=== PATIENT | male | born 1990 | race Caucasian/White ===

== ENCOUNTER 2016-10-10 19:11 | Inpatient (IN) | payer SELFPAY ==
[2016-10-10] MEDS ORDERED: SODIUM CHLORIDE 0.9% 1000ML 1,000 ML IVS ONE (20:34)
--- NOTE | 2016-10-10 21:19 | CT ---
EXAM DESCRIPTION: Abdomen/Pelvis w/Contrast CLINICAL HISTORY: 26 years Male mid abd to lower Right quad pain COMPARISON: None. TECHNIQUE: Contiguous axial images obtained through the abdomen and pelvis following IV contrast. Reformatted images obtained. This exam was performed according to our department optimization program which includes automated exposure control, adjustment of the mA and/or kv according to patient size and/or use of iterative reconstruction technique. FINDINGS: Liver is enlarged measuring 20 cm. No focal lesions are noted. The spleen and pancreas appear unremarkable. No adrenal masses. The kidneys appear unremarkable. No hydronephrosis. The gallbladder is visualized. No aneurysmal dilatation of the aorta. No bowel obstruction. The appendix is dilated and inflamed with hyperemia in the wall. The appendix measures 11 mm. There is some adjacent inflammation. No evidence to suggest perforation.. No significant free fluid noted. IMPRESSION: Findings consistent with acute appendicitis. Dr. Ridley was called and notified of the findings at 9:17 PM central time. Mildly enlarged liver Electronically signed by: Terrie Olivo 10/10/2016 9:17 PM CDT
--- NOTE | 2016-10-10 21:48 | ED.PDOC ---
History of Present Illness - General Chief Complaint: Abdominal Pain Stated Complaint: mid lower abd pain Time Seen by Provider: 10/10/16 21:33 Information Source: patient Exam Limitations: no limitations - History of Present Illness Initial Comments: Norberto Young 26 y/o male stated that he started sharp abdominal pain at 4am today which had been constant not getting better. No nausea,vomiting , diarrhea.Stated did not eat no appetite Pain Radiation: RLQ Quality: sharpness Timing/Duration: 7-24 hours Improving Factors: nothing Worsening Factors: nothing Associated Symptoms: denies symptoms Review of Systems - Review of Systems Constitutional: States: no symptoms reported EENTM: States: no symptoms reported Respiratory: States: no symptoms reported Cardiology: States: no symptoms reported Gastrointestinal/Abdominal: States: see HPI Genitourinary: States: no symptoms reported Musculoskeletal: States: no symptoms reported Skin: States: no symptoms reported Past Medical History (General) - Patient Medical History Hx Asthma: No Hx Hypertension: No Hx Diabetes: No Surgical History: no surgical history - Vaccination History Hx Tetanus, Diphtheria Vaccination: No Hx Influenza Vaccination: No - Social History Hx Tobacco Use: No Hx Chewing Tobacco Use: No Hx Alcohol Use: No Hx Substance Use: No Hx Substance Use Treatment: No Hx Depression: No Feels Threatened In Home Enviroment: No Feels Threatened In a Relationship: No Hx Physical Abuse: No Hx Emotional Abuse: No Hx Suspected Abuse: No - Activities of Daily Living Hospice Agency (if applicable):: None - Female History Patient is a Female of Child Bearing Age (10 -59 yrs old): No Family Medical History - Family History Father Hx Family Hypertension: Yes Physical Exam - Physical Exam General Appearance: Alert, Comfortable, No apparent distress Eyes, Ears, Nose, Throat Exam: PERRL/EOMI, TMs normal, pharynx normal Neck: non-tender, supple Respiratory: chest non-tender, lungs clear, normal breath sounds Cardiovascular/Chest: normal peripheral pulses, regular rate, rhythm, no murmur Peripheral Pulses: No deficit Gastrointestinal/Abdominal: normal bowel sounds, no organomegaly, rebound, tenderness - RLQ Back Exam: no CVA tenderness Extremity: non-tender, no pedal edema, no calf tenderness Neurologic: no motor/sensory deficits, alert, oriented x 3 Skin Exam: normal color Lymphatic: no adenopathy Progress - Results/Orders Results/Orders: Vital Signs - 8 hr 07/27/17 07/27/17 19:29 20:31 Temperature 99.1 F Pulse Rate [ 83 61 left] Respiratory 18 18 Rate Blood Pressure 122/86 127/79 [left] O2 Sat by Pulse 98 98 Oximetry 10/10/16 20:34 Hold Metformin x 48Hrs [id number] Laboratory Results WBC 10.9 K/mm3 (4.8-10.8) H 10/10/16 19:35 RBC 5.35 M/mm3 (4.70-6.10) 10/10/16 19:35 Hgb 16.2 gm/dL (14.0-18.0) 10/10/16 19:35 Hct 47.2 % (42.0-52.0) 10/10/16 19:35 MCV 88.2 fl (80.0-94.0) 10/10/16 19:35 MCH 30.3 pg (27.0-31.0) 10/10/16 19:35 MCHC 34.4 g/dL (33.0-37.0) 10/10/16 19:35 RDW 14.0 % (11.5-14.5) 10/10/16 19:35 Plt Count 211 K/mm3 (130-400) 10/10/16 19:35 MPV 9.3 fl (7.40-10.4) 10/10/16 19:35 Absolute Neuts (auto) 7.30 K/uL (1.8-6.8) H 10/10/16 19:35 Absolute Lymphs (auto) 2.60 K/uL (1.0-3.4) 10/10/16 19:35 Absolute Monos (auto) 0.80 K/uL (0.2-0.8) 10/10/16 19:35 Absolute Eos (auto) 0.20 K/uL (0.0-0.4) 10/10/16 19:35 Absolute Basos (auto) 0.00 K/uL (0.0-0.1) 10/10/16 19:35 Neutrophils % 66.6 % (42.0-78.0) 10/10/16 19:35 Lymphocytes % 23.7 % (20.0-50.0) 10/10/16 19:35 Monocytes % 7.3 % (2.0-9.0) 10/10/16 19:35 Eosinophils % 2.0 % (1.0-5.0) 10/10/16 19:35 Basophils % 0.4 % (0.0-2.0) 10/10/16 19:35 Sodium 140 mmol/L (135-145) 10/10/16 19:35 Potassium 3.7 mmol/L (3.6-5.0) 10/10/16 19:35 Chloride 103 mmol/L (101-111) 10/10/16 19:35 Carbon Dioxide 27 mmol/L (21-31) 10/10/16 19:35 Anion Gap 13.7 (12-18) 10/10/16 19:35 BUN 17 mg/dL (7-18) 10/10/16 19:35 Creatinine 1.02 mg/dL (0.6-1.3) 10/10/16 19:35 BUN/Creatinine Ratio 16.7 (10-20) 10/10/16 19:35 Random Glucose 100 mg/dL (70-105) 10/10/16 19:35 Serum Osmolality 281.0 mOsm/L (275-295) 10/10/16 19:35 Calcium 9.6 mg/dL (8.4-10.2) 10/10/16 19:35 Total Bilirubin 1.1 mg/dL (0.2-1.0) H 10/10/16 19:35 AST 20 IU/L (10-42) 10/10/16 19:35 ALT 20 IU/L (10-60) 10/10/16 19:35 Alkaline Phosphatase 93 IU/L (42-121) 10/10/16 19:35 Serum Total Protein 8.2 gm/dL (6.4-8.2) 10/10/16 19:35 Albumin 5.2 g/dl (3.2-5.5) 10/10/16 19:35 Globulin 3.0 gm/dL (2.3-3.5) 10/10/16 19:35 Albumin/Globulin Ratio 1.7 (1.1-1.9) 10/10/16 19:35 Urine Color Yellow (Yellow) 10/10/16 19:35 Urine Appearance Clear (Clear) 10/10/16 19:35 Urine pH 5.5 (4.5-7.8) 10/10/16 19:35 Ur Specific [place] >= 1.030 (1.005-1.030) 10/10/16 19:35 Urine Protein 100 mg/dL H 10/10/16 19:35 Urine Glucose (UA) Negative mg/dL (Negative) 10/10/16 19:35 Urine Ketones Negative mg/dL (NEGATIVE) 10/10/16 19:35 Urine Blood Negative (Negative) 10/10/16 19:35 Urine Nitrite Negative 10/10/16 19:35 Urine Bilirubin Small (NEGATIVE) H 10/10/16 19:35 Urine Urobilinogen 0.2 mg/dL (0.2-1.0) 10/10/16 19:35 Ur Leukocyte Esterase Negative (Negative) 10/10/16 19:35 Urine RBC 0 /hpf 10/10/16 19:35 Urine WBC 0-1 /hpf 10/10/16 19:35 Ur Epithelial Cells 0-1 /hpf 10/10/16 19:35 Amorphous Sediment 1+ 10/10/16 19:35 Urine Bacteria 0 10/10/16 19:35 Urine Mucus Large 10/10/16 19:35 - EKG/XRAY/CT CT Ordered: Yes - acute appendicitis -no perforation Departure - Departure Clinical Impression: Acute appendicitis Qualifiers: Acute appendicitis type: with localized peritonitis Qualified Code(s): K35.3 - Acute appendicitis with localized peritonitis Time of Disposition: 21:53 - D/W Dr. Resendiz -surgeon Disposition: Admit Patient Condition: Good Departure Forms: Patient Portal Self Enrollment Decision To Admit - Decistion To Admit Decision to Admit Reason: Admit from ER Decision to Admit Date: 10/10/16 Decision to Admit Time: 21:57 - D/W Dr. Resendiz will admit patient
[2016-10-10] MEDS ORDERED: ONDANSETRON INJ 4 MG/2 ML VIAL IV ONE (22:14)
[2016-10-10] MEDS: LACTATED RINGERS 1,000 ML IVS PRN (22:35)
[2016-10-10] MEDS ORDERED: LACTATED RINGERS 1,000 ML ONE (22:38)
[2016-10-10] MEDS ORDERED: metroNIDAZOLE IV PREMIX 500MG 100 ML IVPB ONE (22:38)
[2016-10-10] MEDS: metroNIDAZOLE IV PREMIX 500MG 500 MG in PREMIX BAG 1 BAG IVPB SCH (22:40)
[2016-10-10] MEDS: MORPHINE SULFATE INJ 10 MG/ML VIAL IV PRN (22:41)
--- NOTE | 2016-10-10 23:05 | HP ---
CHIEF COMPLAINT: Abdominal pain. HISTORY OF PRESENT ILLNESS: The patient is a healthy, 26-year-old male who was in his normal state of health until early yesterday morning when he developed abdominal pain. It moved to the right side and worsened. He presented to the Emergency Room. He denies high fever or chills. He denies, cough, urinary symptoms, denies nausea or vomiting. His last bowel movement was day before yesterday and was within normal limits. PAST MEDICAL HISTORY: Negative for hospitalizations or surgeries. CURRENT MEDICATIONS: None. ALLERGIES: NO KNOWN DRUG ALLERGIES. FAMILY HISTORY: Positive for high blood pressure. There is also an unknown malignancy in a cousin. There is no history of anesthesia complications. There is no stated history of diabetes in the family. SOCIAL HISTORY: The patient is . He works in the construction industry. He has no history of tobacco, alcohol or drug use. REVIEW OF SYSTEMS: There has been no weight loss, change in bowel habits, shortness of breath, chest pain, urinary symptoms, dizziness, no history of melena, blood stools, or hematemesis. PHYSICAL EXAMINATION: GENERAL: The patient is awake, alert, cooperative, in mild to moderate distress. VITAL SIGNS: The patient is currently afebrile, normotensive. HEENT: Sclerae nonicteric. Mucous membranes moist. NECK: Without adenopathy. BACK: Without CVA tenderness. CHEST: Equal breath sounds bilaterally anteriorly. HEART: Regular rate and rhythm. ABDOMEN: Soft. Tender in the right lower quadrant with mild guarding. There is no referred tenderness. Bowel sounds are decreased. RECTAL: Deferred. EXTREMITIES: Without cyanosis, clubbing or edema. LABORATORY: White count 8,000 this morning with 56% neutrophils. Hemoglobin 14.6. This was down from 16 in the Emergency Room. White count down from 10.9 in the Emergency Room. Electrolytes in the Emergency Room were all within normal limits with potassium 3.7, creatinine 1.02, bilirubin mildly elevated at 1.1. ALT, AST, alkaline phosphatase all within normal limits. CT scan of the abdomen reveals an appendix 11 mg in diameter with inflammation, no evidence of free fluid or free air. ASSESSMENT: 1. Right lower quadrant abdominal pain. 2. Abnormal CT scan suspicious for appendicitis. PLAN: The risks, benefits and alternatives to laparoscopy and appendectomy were discussed with the patient. He understands and wishes to proceed with surgery. He was previously started on Levaquin and Flagyl. This will be dosed appropriately if it is time for these medicines. #[id number] MTDD
[2016-10-11] MEDS ORDERED: levoFLOXacin 500MG IV 100 ML IVPB ONE ×2 (00:09→20:26)
[2016-10-11] MEDS: levoFLOXacin 500MG IV 500 MG in PREMIX BAG 1 BAG IVPB SCH (00:16)
[2016-10-11] MEDS: MORPHINE SULFATE INJ 10 MG/ML VIAL IV PRN ×5 (02:58→18:50)
[2016-10-11] MEDS ORDERED: metroNIDAZOLE IV PREMIX 500MG 100 ML IVPB ONE ×3 (06:33→20:26)
[2016-10-11] MEDS: metroNIDAZOLE IV PREMIX 500MG 500 MG in PREMIX BAG 1 BAG IVPB SCH ×3 (06:38→21:48)
[2016-10-11] MEDS: LACTATED RINGERS 1,000 ML IVS PRN ×3 (07:26→18:56)
[2016-10-11] MEDS ORDERED: levoFLOXacin 500MG IV 500 MG in PREMIX BAG 1 BAG IVPB SCH (09:00)
[2016-10-11] MEDS ORDERED: SODIUM CHLORIDE 0.9% (FLUSH) 10 ML SYG IV PRN (09:23)
[2016-10-11] MEDS ORDERED: IV SET AND CAP CHANGE INJ INJ SCH (09:30)
[2016-10-11] MEDS ORDERED: BUPIVACAINE 0.25% W/EPI 50 ML VIAL INJ ONE (10:05)
[2016-10-11] MEDS ORDERED: LIDOCAINE 1% 10 ML VIAL INJ ONE (12:00)
[2016-10-11] MEDS ORDERED: PROPOFOL 200 MG/20 ML VIAL IV ONE (12:00)
[2016-10-11] MEDS ORDERED: DEXAMETHASONE INJ 10 MG/ML VIAL IV ONE (12:00)
[2016-10-11] MEDS ORDERED: METOCLOPRAMIDE HCL INJ 10 MG/2 ML VIAL IV ONE (12:00)
[2016-10-11] MEDS ORDERED: KETOROLAC TROMETHAMINE INJ 30 MG/ML VIAL IV ONE (12:00)
[2016-10-11] MEDS ORDERED: raNITIdine HCL INJ 25 MG/ML VIAL IV ONE (12:00)
[2016-10-11] MEDS ORDERED: CHLORHEXIDINE GLUCONATE 4 % 15 ML UD TOP ONE (12:33)
[2016-10-11] MEDS ORDERED: fentaNYL CITRATE INJ 50 MCG/ML AMP ONE (12:41)
[2016-10-11] MEDS ORDERED: MIDAZOLAM INJ 5 MG/5 ML VIAL ONE (12:41)
[2016-10-11] MEDS ORDERED: ROCURONIUM BROMIDE 10 MG/ML VIAL ONE (12:41)
[2016-10-11] MEDS ORDERED: ELECTROLYTE-A 1,000 ML IVS ONE (13:21)
[2016-10-11] MEDS ORDERED: SUGAMMADEX SODIUM 200 MG/2 ML VIAL IV ONE (14:02)
[2016-10-11] MEDS ORDERED: ONDANSETRON INJ 4 MG/2 ML VIAL IV PRN (14:18)
--- NOTE | 2016-10-11 14:49 | OP ---
DATE OF PROCEDURE: 10/11/16 PREOPERATIVE DIAGNOSIS: 1. Right lower quadrant abdominal pain. 2. Abnormal CT scan suspicious for appendicitis. POSTOPERATIVE DIAGNOSIS: 1. Right lower quadrant abdominal pain. 2. Abnormal CT scan suspicious for appendicitis. 3. Acute suppurative appendicitis. PROCEDURE: 1. Laparoscopic appendectomy. SURGEON: Vadim Resendiz MD. MEDIA BUYER: None. ANESTHESIA: General endotracheal anesthesia and local infiltration of 0.25% Marcaine with epinephrine. INDICATION: The patient is a 26-year-old white male who developed abdominal pain yesterday. He had a mildly elevated white count in the Emergency Room. He was started on IV Levaquin and Flagyl this morning. His white count was 8, 000. He continued to have right lower quadrant pain, however, and some guarding , so after the risks, benefits and alternatives to surgery including antibiotic therapy only, we have decided to proceed with appendectomy and that is done laparoscopically today. FINDINGS: The appendix was indurated, suppurative and injected. There was no obvious fluid collection. No other pathology was identified. PROCEDURE: After adequate general endotracheal anesthesia was obtained, the patient was prepped and draped in the usual sterile manner. A Turner catheter was placed. At this time, a surgical time-out was taken. The infraumbilical area was infiltrated with local anesthesia. A curvilinear incision was fashioned and carried down through the subcutaneous tissue to the midline fascia using blunt dissection. Traction sutures were placed on either side of the midline. A small incision was made in the midline fascia. The peritoneum was opened bluntly. Augustus trocar was introduced under direct vision into the abdominal cavity and fixed in place with a 20 mL balloon. CO2 was then insufflated until a pressure of 12 mmHg was reached and the abdomen was tympanitic in all four quadrants. When this was done, the laparoscope was introduced and the abdomen was inspected with the previously noted findings. The patient was then placed in the Trendelenburg position. A suprapubic port was placed under direct vision. The right lower quadrant was explored and the appendix was identified. The left lower quadrant port was placed under direct vision. The patient was then turned to the left side. The appendix was dissected free with gentle blunt dissection and it was elevated. The base of the appendix was identified. The mesoappendix at the base was divided using blunt dissection. The Endo-IGNACIO was then used to divide the base of the appendix with vascular dacia. Two more firings divided the mesoappendix. It was then placed in an EndoCatch bag and removed through the left lower quadrant port site in the usual manner under direct vision. When this was done, the right lower quadrant was inspected. Several loose dacia were removed. A small amount of blood and clot were removed using a single sponge. The sponge was removed. Hemostasis was noted to be adequate. At this point, the left lower quadrant port was removed under direct vision and the port site fascia was approximated with two simple sutures of 0 Vicryl placed using the EndoClose device. When these were tightened and tied, hemostasis was noted to be adequate. At this point, the suprapubic port was removed under direct vision and showed adequate hemostasis. At this point, the CO2, the laparoscope and the infraumbilical port were removed. The infraumbilical port site fascia was approximated with a single [id number] suture of 0 Vicryl. Subcutaneous tissue was irrigated with saline. Skin edges were approximated with loosely with a skin stapler. Sterile dressings were applied. Turner catheter was removed. The patient was awakened and taken to the Recovery Room in stable condition. Estimated blood loss was less than 25 mL. All sponge, needle and instrument counts were correct. #[id number] [facility]
[2016-10-11] MEDS: HYDROcodone 5MG/APAP 325MG 1 EA TAB PO PRN (23:15)
[2016-10-12] MEDS: levoFLOXacin 500MG IV 500 MG in PREMIX BAG 1 BAG IVPB SCH (00:11)
[2016-10-12] MEDS: HYDROcodone 5MG/APAP 325MG 1 EA TAB PO PRN ×4 (02:59→11:58)
[2016-10-12] MEDS: LACTATED RINGERS 1,000 ML IVS PRN (04:50)
[2016-10-12] MEDS ORDERED: metroNIDAZOLE IV PREMIX 500MG 100 ML IVPB ONE (05:12)
[2016-10-12] MEDS: metroNIDAZOLE IV PREMIX 500MG 500 MG in PREMIX BAG 1 BAG IVPB SCH (05:32)
[2016-10-12 10:22] VITALS: BP 115/73; TEMP 97.6
[2016-10-12 10:23] VITALS: O2SAT 98
[2016-10-12] MEDS ORDERED: MAGNESIUM HYDROXIDE 30 ML UD PO ONE (11:34)
--- NOTE | 2016-10-21 08:34 | DS ---
FINAL DIAGNOSIS: 1. Acute appendicitis. PROCEDURE: Laparoscopic appendectomy on 10/11/16. HISTORY OF PRESENT ILLNESS: The patient is a healthy, 26-year-old male who was in his normal state of health until early yesterday morning when he developed abdominal pain. It moved to the right side and worsened. He presented to the Emergency Room. He denies high fever or chills. He denies, cough, urinary symptoms, denies nausea or vomiting. His last bowel movement was day before yesterday and was within normal limits. LABORATORY: White blood cell count 8,000 preoperatively with a hemoglobin of 14. This was down from 16 in the Emergency Room. Liver functions were within normal limits other than bilirubin of 1.1. Creatinine 1.02. CT scan revealed an abnormal appendix associated with appendicitis. HOSPITAL COURSE: The patient was admitted through the Emergency Room late at night on 10/10/16. He was hydrated and started on IV antibiotics. By the next morning, his pain had not improved even though his lab had, so the risks, benefits and alternatives to laparoscopy and appendectomy were discussed with the patient and he was taken to the Surgical Suite where he underwent the laparoscopic appendectomy. Catheter was discontinued in the Operating Room. He made good urine. He was tolerating clear liquids. On the first operative day, he was tolerating clear liquids, advanced to a regular diet and in the afternoon of the first postoperative day, he was discharged home. CONDITION ON DISCHARGE: Improved. PROGNOSIS: Excellent. DISPOSITION: The patient is to followup in my office approximately ten days postoperatively. He was discharged home with instructions to eat a regular diet and push fluids. He was told he can ambulate, but do not lifting or exercise. He was told to shower, but not tub bath. He was discharged home with a prescription for Ceftin and he was instructed to call my office, the hospital, or my home phone number if he developed nausea, vomiting, fever, chills, increasing abdominal pain or had other questions or problems. #[id number] [facility]
== END 2016-10-12 14:00 | disposition home or self-care (01) | DRG 343 ==
LOC: ER 19:11 → OBSVTOIN 23:04 → MS 23:04
PROVIDERS: ADMIT Surgery; ATTEND Nurse Practitioner Family
PROC: BW21YZZ Computerized Tomography (CT Scan) of Abdomen and Pelvis using Other Contrast (ICD-10-PCS; 2016-10-10)
PROC: 0DTJ4ZZ Resection of Appendix, Percutaneous Endoscopic Approach (ICD-10-PCS; principal; 2016-10-11 12:58)
DX: K35.80 Unspecified acute appendicitis (principal)